=== PATIENT | male | born 1995 | race Caucasian/White ===

== ENCOUNTER 2020-12-02 21:37 | Emergency (ER) | payer OTHER, SELFPAY ==
[2020-12-02 21:38] VITALS: BP 167/92; PULSE 120; RESP 18; TEMP 36.2; O2SAT 99; BMI 34.8
[2020-12-02 21:50] VITALS: BP 167/92; PULSE 120; RESP 18; TEMP 36.2; O2SAT 99
--- NOTE | 2020-12-02 22:13 | EDS_ITS ---
HPI History of Present Illness Chief Complaint: Wound Informant: patient Narrative Narrative: Patient presents emergency department for evaluation of abscess. Patient states that 1 year ago he had a pimple to develop in between his gluteal folds. He states that it drained but he is always had a small hole there. About 1 week ago it began to swell and drain. He thought that it had gone away but today it swelled up. On his way to the emergency department he states that it opened up and started draining. He notes foul drainage from it. He has never had this evaluated. [facility] Medical History Abscess Home Medications cephalexin 500 mg PO Q6 #40 capsule 12/02/20 [Rx Last Taken Unknown] hydrocodone-acetaminophen 1 tab PO Q6H PRN PRN 3 Days #12 tablet 12/02/20 [Rx Last Taken Unknown] sulfamethoxazole-trimethoprim 1 tab PO BID #20 tablet 12/02/20 [Rx Last Taken Unknown] Allergy/AdvReac Type Severity Reaction Status Date / Time No Known Allergies Allergy Verified 12/02/20 21:39 Social History (Updated 12/02/20 @ 22:[address] Charles Frederick DO) Smoking Status: Current every day smoker tobacco type: cigarettes substance use type: does not use ROS ROS ED Constitutional Constitutional ED: Denies chills or weight loss Eyes Eyes: Denies change in vision or diplopia ENT ENT ED: Denies ear pain, rhinorrhea or sore throat Cardiovascular Cardiovascular: Denies chest pain, orthopnea, palpitations or racing heartbeat Respiratory/Chest Respiratory/Chest: Denies cough, dyspnea or orthopnea Gastrointestinal Gastrointestinal: Denies abdominal pain, diarrhea, nausea or vomiting Genitourinary Genitourinary ED: Denies dysuria, hematuria or urinary frequency Musculoskeletal Musculoskeletal: Denies arthralgias or myalgias Integumentary Reports abscess; Denies rash Neurologic Neurologic: Denies headache(s) or weakness Psychiatric Psychiatric: Denies anxiety, depression, suicidal ideation or suicidal thoughts Endocrine Endocrinology: Denies polydipsia, polyphagia or polyuria Allergic/Immunologic Allergic/Immunologic ED: Denies mouth swelling, tongue swelling or urticaria EXAM Physical Exam Const Vital Signs: 12/02/20 21:38 12/02/20 21:50 Temperature 97.2 F L 97.2 F L Temperature Source Temporal Temporal Pulse Rate 120 H 120 H Respiratory Rate 18 18 Blood Pressure 167/92 H 167/92 H Blood Pressure Mean 117 117 Pulse Ox 99 99 Oxygen Delivery Method Room Air Room Air Positive well nourished and well developed General Appearance ED: well developed HEENT Reports normocephalic, head/scalp atraumatic and moist mucous membranes Eyes PERRL and EOMs intact bilaterally Neck no lymphadenopathy, supple and no JVD Resp normal respiratory effort and clear to auscultation bilaterally Cardio regular rate, regular rhythm and no murmurs GI normal to inspection, nondistended, normoactive bowel sounds and non-tender Palpation: soft Narrative: There is a sinus tract in the gluteal cleft. It is draining purulent material. There is no significant surrounding erythema. There is no significant swelling at this time. Back/Spine no CVA tenderness and normal ROM Extremity normal to inspection General Extremety ED: Negative for edema General Extremity: Negative for edema Neuro oriented x3 and CN's II-XII intact bilaterally Sensorium / Orientation: alert Motor Exam: strength 5/5 throughout Psych mental status grossly normal Mood & Affect: Negative for depressed or tearful Skin no rashes or lesions noted and no wounds MDM MDM MDM Narrative Medical decision making narrative: Patient has what appears to be a well-formed sinus tract. There is no significant swelling or erythema. There is foul purulent drainage from the area. Patient will be referred to surgery. I will start him on antibiotics and pain medication. Recommend hot water soaks. Discharge Plan Triage Chief Complaint: Wound ED Provider: Charles Frederick Dx/Rx/DC Orders Clinical Impression: Cyst, pilonidal, with abscess Instructions: ED Cyst Pilonidal Infec Abx Only Prescriptions: New hydrocodone-acetaminophen [hydrocodone-acetaminophen] 1 TABLET tablet 1 tab PO Q6H PRN PRN (Reason: Pain) 3 Days Qty: 12 RF: 0 cephalexin [cephalexin] 500 MG capsule 500 mg PO Q6 Qty: 40 RF: 0 sulfamethoxazole-trimethoprim [sulfamethoxazole-trimethoprim] 1 TABLET tablet 1 tab PO BID Qty: 20 RF: 0 Primary Care Provider: NOT,DEFINED Referrals: Charito Joseph MD [STAFF PHYSICIAN] - As soon as possible NOT,DEFINED [Primary Care Provider] - Disposition Disposition: Home, Self Care
[2020-12-02] MEDS: Smz/Tmp Ds Tablet 1 TABLET PO (22:22)
[2020-12-02] MEDS: Cephalexin 250 MG Capsule 500 MG PO (22:22)
== END 2020-12-02 22:32 | disposition home or self-care (01) ==
PROVIDERS: Emergency Provider Emergency Medicine
DX: L05.01 Pilonidal cyst with abscess (principal); F17.210 Nicotine dependence, cigarettes, uncomplicated
CPT/HCPCS: 99283